=== PATIENT | male | born 1950 | race Caucasian/White ===

== ENCOUNTER 2020-04-10 11:40 | Inpatient (IN) ==
[2020-04-10] MEDS ORDERED: DEXAMETHASONE 4 MG/1 ML VIAL IM STA (14:26)
[2020-04-10] MEDS ORDERED: DEXAMETHASONE 4 MG/1 ML VIAL ONE (14:27)
[2020-04-10] MEDS ORDERED: ONDANSETRON 4 MG/2 ML VIAL IV STA (14:28)
[2020-04-10] MEDS ORDERED: ONDANSETRON ODT 4 MG TABLET PO STA (14:43)
[2020-04-10] MEDS ORDERED: ONDANSETRON ODT 4 MG TABLET PO ONE (14:44)
[2020-04-10 15:41] LABS: Basophils % 0.4 % (0.0-0.8); Eosinophils # 0.1 10*3/uL (0.0-0.87); Eosinophils % 1.1 % (0.00-10.9); Hematocrit 39.9 VOL% (42.0-52.0); Hemoglobin 14.3 GM/DL (14.0-18.0); Immature Granulocytes % 0.5 %; Immature Granulocytes Absolute 0.03 #; Lymphocytes # 0.9 10*3/uL (1.4-4.0); Lymphocytes % 15.6 % (21.2-54.2); Mean Corpuscular HGB Conc 35.8 GM/DL (32-36); Mean Corpuscular Volume 94.1 FL (87-102); Mean Platelet Volume 10.1 FL (9.6-12.0); Monocytes % 9.1 % (1.7-12.7); Neutrophils % 73.3 % (38.7-73.9); Platelet Count 155 T/CUMM (130-400); Red Blood Count 4.24 MC/CUMM (3.8-5.5); Red Cell Distribution Width 12.8 % (9.3-17.3); White Blood Count 5.5 T/CUMM (4-12)
[2020-04-10] MEDS ORDERED: AZITHROMYCIN INJ 500 MG in SODIUM CHLORIDE 0.9% 250 ML IV STA (16:08)
[2020-04-10] MEDS ORDERED: cefTRIAXone 1,000 MG in SODIUM CHLORIDE 0.9% 100 ML IV STA (16:08)
[2020-04-10] MEDS ORDERED: IBUPROFEN 800 MG TABLET PO STA (16:09)
[2020-04-10 16:15] LABS: Albumin 3.4 G/DL (3.4-5.0); Bilirubin,Total 0.7 MG/DL (0.2-1.0); Calcium 8.6 MG/DL (8.5-10.1); Ferritin 617.9 ng/ml (26-388); Osmolality,Calculated 269.1 MOS/KG (273-304); Potassium 4.4 MMOL/L (3.5-5.1); Total Protein 7.7 G/DL (6.4-8.3)
[2020-04-10] MEDS ORDERED: ACETAMINOPHEN 500 MG TABLET PO STA (17:17)
[2020-04-10] MEDS ORDERED: traMADol 50 MG TABLET PO PRN (17:30)
[2020-04-10] MEDS ORDERED: ALUMINUM/MAGNES/SIMETH MAX STR 30 ML UDCUP PO PRN (17:38)
[2020-04-10] MEDS ORDERED: BISACODYL 5 MG TABLET PO PRN (17:38)
[2020-04-10] MEDS ORDERED: ONDANSETRON 4 MG/2 ML VIAL IV PRN (17:38)
[2020-04-10] MEDS ORDERED: GLUCAGON 1 MG VIAL IM PRN (17:38)
[2020-04-10] MEDS ORDERED: CALCIUM CARBONATE CHEW 500 MG TABLET PO PRN (17:38)
[2020-04-10] MEDS ORDERED: hydrALAZINE 20 MG/1 ML VIAL IV PRN (17:38)
[2020-04-10] MEDS ORDERED: DEXTROSE 50% 25 GM/50 ML VIAL IV PRN (17:38)
[2020-04-10] MEDS ORDERED: ACETAMINOPHEN 325 MG TABLET PO PRN (17:38)
[2020-04-10] MEDS ORDERED: DOCUSATE SODIUM 100 MG CAPSULE PO PRN (17:38)
[2020-04-10] MEDS ORDERED: ZALEPLON 5 MG CAPSULE PO PRN (17:38)
[2020-04-10] MEDS ORDERED: SIMETHICONE CHEW 125 MG TABLET PO PRN (17:38)
[2020-04-10] MEDS ORDERED: LACTULOSE 20 GM/30 ML UDCUP PO PRN (17:38)
[2020-04-10 17:56] LABS: ABG Base Excess 0.1 MMOL/L (-2.5-2.5); ABG HCO3 24.5 MMOL/L (20-26); ABG Oxygen Saturation 98.4 % (95-100); ABG PCO2 32.6 MM HG (35-48); ABG PH 7.457 (7.35-7.45); ABG TCO2 19.5 MMOL/L (23-27)
[2020-04-10 18:00] LABS: Band Neutrophils 1 % (0-10); Eosinophils 2 % (0-10); Lymphocytes 8 % (20-55); Macrocytosis Slight; Segmented Neutrophils 79 % (50-85); Total Cells Counted 100
[2020-04-10 18:01] LABS: Hypochromasia Slight; Polychromasia Slight
[2020-04-10] MEDS: SODIUM CHLORIDE 0.45% 1,000 ML IV SCH (18:45)
[2020-04-10] MEDS: MELATONIN 3 MG TABLET PO SCH (20:46)
[2020-04-10] MEDS: ENOXAPARIN 60 MG/0.6 ML SYRINGE SUBCUT SCH (20:46)
[2020-04-10] MEDS: GABAPENTIN 300 MG CAPSULE PO SCH (20:46)
[2020-04-10] MEDS: TAMSULOSIN 0.4 MG CAPSULE PO SCH (20:46)
[2020-04-10] MEDS: busPIRone 5 MG TABLET PO SCH (20:46)
[2020-04-10] MEDS: BENZONATATE 100 MG CAPSULE PO SCH (20:46)
[2020-04-10] MEDS: guaiFENesin/DM ER 600-30 MG TABLET PO SCH (20:46)
[2020-04-10] MEDS: ASCORBIC ACID 500 MG TABLET PO SCH (20:46)
[2020-04-10] MEDS: ACETAMINOPHEN 500 MG TABLET PO SCH (22:44)
[2020-04-11 04:45] LABS: Basophils % 0.3 % (0.0-0.8); Hematocrit 40.4 VOL% (42.0-52.0); Immature Granulocytes % 0.6 %; Immature Granulocytes Absolute 0.02 #; Lymphocytes # 0.9 10*3/uL (1.4-4.0); Lymphocytes % 25.3 % (21.2-54.2); Mean Corpuscular HGB Conc 34.7 GM/DL (32-36); Mean Platelet Volume 9.4 FL (9.6-12.0); Neutrophils % 68.8 % (38.7-73.9); Platelet Count 182 T/CUMM (130-400); Red Blood Count 4.21 MC/CUMM (3.8-5.5); Red Cell Distribution Width 12.8 % (9.3-17.3); White Blood Count 3.6 T/CUMM (4-12)
[2020-04-11 05:01] LABS: Albumin 3.2 G/DL (3.4-5.0); Bilirubin,Total 1.2 MG/DL (0.2-1.0); Calcium 8.4 MG/DL (8.5-10.1); Ferritin 604.3 ng/ml (26-388); Osmolality,Calculated 276.1 MOS/KG (273-304); Potassium 4.8 MMOL/L (3.5-5.1); Total Protein 6.8 G/DL (6.4-8.3)
[2020-04-11 05:14] LABS: Hypochromasia Slight; Lymphocytes 23 % (20-55); Platelet Estimate Adequate; Segmented Neutrophils 69 % (50-85); Total Cells Counted 100
[2020-04-11 05:20] LABS: Risk Ratio 4.73; Thyroid Stimulating Hormone 0.391 uIU/ml (0.358-3.74); VLDL CHOLESTEROL 20.8 MG/DL
[2020-04-11 06:22] LABS: Sedimentation Rate-Westergren 70 MM/HR (0-20)
[2020-04-11] MEDS: ACETAMINOPHEN 500 MG TABLET PO SCH ×3 (06:54→22:25)
[2020-04-11] MEDS ORDERED: cefTRIAXone 1,000 MG in SYRINGE 1 EACH IV SCH (09:00)
[2020-04-11] MEDS: ASCORBIC ACID 500 MG TABLET PO SCH ×2 (09:43→22:25)
[2020-04-11] MEDS: CHOLECALCIFEROL 1,000 UNIT TABLET PO SCH (09:43)
[2020-04-11] MEDS: amLODIPine 5 MG TABLET PO SCH (09:43)
[2020-04-11] MEDS: ZINC SULFATE 220 MG CAPSULE PO SCH (09:44)
[2020-04-11] MEDS: CETIRIZINE 10 MG TABLET PO SCH (09:44)
[2020-04-11] MEDS: ENOXAPARIN 60 MG/0.6 ML SYRINGE SUBCUT SCH ×2 (09:44→22:21)
[2020-04-11] MEDS: guaiFENesin/DM ER 600-30 MG TABLET PO SCH ×2 (09:44→22:24)
[2020-04-11] MEDS: PANTOPRAZOLE 40 MG TABLET PO SCH (09:44)
[2020-04-11] MEDS: BENZONATATE 100 MG CAPSULE PO SCH ×2 (09:44→22:25)
[2020-04-11] MEDS: GABAPENTIN 300 MG CAPSULE PO SCH ×3 (09:44→22:24)
[2020-04-11] MEDS: busPIRone 5 MG TABLET PO SCH ×2 (09:44→22:21)
[2020-04-11] MEDS ORDERED: INFLUENZA VIRUS VACCINE 0.5 ML SYRINGE IM ONE (11:01)
[2020-04-11] MEDS: SODIUM CHLORIDE 0.45% 1,000 ML IV SCH (14:45)
[2020-04-11] MEDS ORDERED: AZITHROMYCIN INJ 500 MG in SODIUM CHLORIDE 0.9% 250 ML IV SCH (21:00)
[2020-04-11] MEDS ORDERED: ZALEPLON 5 MG CAPSULE PO SCH (21:00)
[2020-04-11] MEDS: FLUTICASONE 50 MCG NASAL SPRAY 16 GM BOTTLE BOTH NARES SCH (22:21)
[2020-04-11] MEDS: MELATONIN 3 MG TABLET PO SCH (22:21)
[2020-04-11] MEDS: TAMSULOSIN 0.4 MG CAPSULE PO SCH (22:21)
[2020-04-12 06:09] LABS: Basophils % 0.1 % (0.0-0.8); Eosinophils % 0.2 % (0.00-10.9); Hematocrit 36.8 VOL% (42.0-52.0); Hemoglobin 12.8 GM/DL (14.0-18.0); Immature Granulocytes % 0.4 %; Immature Granulocytes Absolute 0.04 #; Lymphocytes # 1.1 10*3/uL (1.4-4.0); Lymphocytes % 11.1 % (21.2-54.2); Mean Corpuscular HGB Conc 34.8 GM/DL (32-36); Mean Corpuscular Volume 96.3 FL (87-102); Mean Platelet Volume 9.7 FL (9.6-12.0); Monocytes % 5.6 % (1.7-12.7); Neutrophils % 82.6 % (38.7-73.9); Platelet Count 210 T/CUMM (130-400); Red Blood Count 3.82 MC/CUMM (3.8-5.5); Red Cell Distribution Width 12.9 % (9.3-17.3); White Blood Count 10.3 T/CUMM (4-12)
[2020-04-12] MEDS: ACETAMINOPHEN 500 MG TABLET PO SCH (06:16)
[2020-04-12 06:45] LABS: Albumin 2.7 G/DL (3.4-5.0); Bilirubin,Total 0.5 MG/DL (0.2-1.0); Calcium 8.5 MG/DL (8.5-10.1); Ferritin 533.1 ng/ml (26-388); Osmolality,Calculated 277.8 MOS/KG (273-304); Potassium 4.4 MMOL/L (3.5-5.1); Total Protein 6.5 G/DL (6.4-8.3)
[2020-04-12 07:19] LABS: Sedimentation Rate-Westergren 80 MM/HR (0-20)
[2020-04-12] MEDS ORDERED: ASPIRIN EC 81 MG TABLET PO SCH (09:00)
[2020-04-12] MEDS: GABAPENTIN 300 MG CAPSULE PO SCH (10:48)
[2020-04-12] MEDS: FLUTICASONE 50 MCG NASAL SPRAY 16 GM BOTTLE BOTH NARES SCH (10:48)
[2020-04-12] MEDS: ENOXAPARIN 60 MG/0.6 ML SYRINGE SUBCUT SCH (10:48)
[2020-04-12] MEDS: CHOLECALCIFEROL 1,000 UNIT TABLET PO SCH (10:48)
[2020-04-12] MEDS: PANTOPRAZOLE 40 MG TABLET PO SCH (10:49)
[2020-04-12] MEDS: guaiFENesin/DM ER 600-30 MG TABLET PO SCH (10:49)
[2020-04-12] MEDS: ASCORBIC ACID 500 MG TABLET PO SCH (10:49)
[2020-04-12] MEDS: CETIRIZINE 10 MG TABLET PO SCH (10:49)
[2020-04-12] MEDS: amLODIPine 5 MG TABLET PO SCH (10:49)
[2020-04-12] MEDS: busPIRone 5 MG TABLET PO SCH (10:49)
[2020-04-12] MEDS: ZINC SULFATE 220 MG CAPSULE PO SCH (10:49)
[2020-04-12] MEDS: BENZONATATE 100 MG CAPSULE PO SCH (10:49)
[2020-04-12 11:24] VITALS: BP 119/61
[2020-04-12] MEDS: SODIUM CHLORIDE 0.45% 1,000 ML IV SCH (12:53)
[2020-04-12] MEDS ORDERED: AZITHROMYCIN 250 MG TABLET PO SCH (21:00)
[2020-04-15 19:51] LABS: Specimen Source NASAL
== END 2020-04-12 15:20 | disposition home health service (06) | DRG 177 ==
LOC: N.ED 11:40 → N.EDINP 18:45 → SUATTDRO 18:45 → N.EDINP 04-11 08:36 → N.2E 04-11 09:30
PROVIDERS: ADMIT Internal Medicine; ATTEND Family Medicine